=== PATIENT | female | born 1930 | race Caucasian/White ===

== ENCOUNTER → 2016-09-12 | Outpatient (CLI) | payer OTHER ==
[~2016-09-12] MED LIST: ACET325T96 PO; ASCO10003 PO; ASPI81TA28 PO; BACL10TA PO; CALC200T PO; DLN100 PO; ESTROGEN TOP; LRS10 PO; LVNIS30 SQ; MELA1TAB5 PO; MENT4GEL TOP; METO25TA3 PO; MIRT30TA2 PO; MRLP17 PO; MULT-506 PO; NCY50 PO; NCYSR50 PO; NITR1CAP33 PO; POLY335019 PO; POTA1CAP2 PO; QUET1TAB30 PO; RBTUDL5 PO; RMR15 PO; SENN-61 PO; SIME80TA PO; SRQ25 PO; TAPE50TA5 PO; TPRSR25 PO; [UNRECOGNIZED DRUG - OTHER]
[2016-09-12 23:16] LABS: BASO % 0.1 %; BASO ABS # 0.03 K/uL (0-0.2); EOS % 8.9 %; HEMATOCRIT 32.7 % (37-47); IG% 0.3 %; LYMPH ABS # 0.66 K/uL (1.2-3.4); MEAN CELL VOLUME 91.6 fL (80-100); MEAN PLATELET VOLUME 11.1 fL (7.4-10.4); MONO % 4.6 %; NEUT % 83.1 %; PLATELET COUNT 285 K/uL (130-400); RED BLOOD COUNT 3.57 M/uL (4.2-5.4)
[2016-09-12 23:36] LABS: COMPLETE YES; MEAN CORPUSCULAR HGB CONC 32.7 g/dl (32-36)
== END | disposition home or self-care (01) ==
LOC: C.LABBROIN 12:52
PROVIDERS: ATTEND Family Medicine
DX: R50.9 Fever, unspecified (principal); R39.0 Extravasation of urine; N39.0 Urinary tract infection, site not specified

== ENCOUNTER 2017-01-06 08:44 | Day surgery (SDC) | payer OTHER ==
[2017-01-04 16:17] VITALS: BMI 23.0
--- NOTE | 2017-01-05 10:58 | PAT Medication Instructions ---
Service Date January 05, 2017. Current Home Medication List Acetaminophen Tab (Tylenol), 650 MG PO Q4H PRN for UD Ascorbic Acid (Vitamin C), 1,000 MG PO BID Aspirin (Aspirin Ec), 81 MG PO QAM Baclofen (Lioresal), 5 MG PO am/hs Calcium Carbonate-Vitamin D (Oscal 500/200 D-3), 1 TAB PO DAILY Guaifenesin (Robitussin), 10 ML PO Q6H PRN for RN Melatonin (Kp Melatonin), 3 MG PO HS Menthol (Topical Analgesic) (Biofreeze), 1 DOSE TOP TID Metoprolol Succinate (Toprol Xl), 12.5 MG PO DAILY PRN for QAM Mirtazapine Soltab (Remeron Soltab), 30 MG PO HS Multivitamin (Multivitamin), 1 TAB PO QPM Phenytoin Sodium (Dilantin), 200 CAP PO AM/HS Polyethylene Glycol 3350 (Miralax), 17 GM PO QAM Potassium Chloride (Potassium Chloride Er), 10 MEQ PO QPM Quetiapine Fumarate (Seroquel), 12.5 MG PO HS Senna (Senokot), 1 TAB PO BID Tapentadol Hcl (Nucynta), 25 MG PO Q4H PRN for RN [Estrogen Cr 0.625 Mg], 1 DOSE TOP 3XWEEK Medication Instructions For Your Scheduled Surgery - Continue as directed: [Estrogen Cr 0.625 Mg], 1 DOSE TOP 3XWEEK - Hold the following medications 24 hours prior to surgery: Menthol (Topical Analgesic) (Biofreeze), 1 DOSE TOP TID - Hold the following medications the morning of surgery: Ascorbic Acid (Vitamin C), 1,000 MG PO BID Baclofen (Lioresal), 5 MG PO am/hs Senna (Senokot), 1 TAB PO BID Guaifenesin (Robitussin), 10 ML PO Q6H PRN Calcium Carbonate-Vitamin D (Oscal 500/200 D-3), 1 TAB PO DAILY Polyethylene Glycol 3350 (Miralax), 17 GM PO QAM - Take the following medications the morning of surgery with a sip of water OTHERWISE NOTHING TO EAT OR DRINK AFTER MIDNIGHT: Acetaminophen Tab (Tylenol), 650 MG PO Q4H PRN for UD (may take if needed up to 4 hours prior to surgery if needed) Tapentadol Hcl (Nucynta), 25 MG PO Q4H PRN (may take if needed up to 4 hours prior to surgery if needed) Aspirin (Aspirin Ec), 81 MG PO QAM (continue unless otherwise instructed by surgeon) Metoprolol Succinate (Toprol Xl), 12.5 MG PO DAILY PRN for QAM Phenytoin Sodium (Dilantin), 200 CAP PO AM/HS - Take the following medications as scheduled the night before surgery: Acetaminophen Tab (Tylenol), 650 MG PO Q4H PRN for UD Ascorbic Acid (Vitamin C), 1,000 MG PO BID Baclofen (Lioresal), 5 MG PO am/hs Potassium Chloride (Potassium Chloride Er), 10 MEQ PO QPM Quetiapine Fumarate (Seroquel), 12.5 MG PO HS Melatonin (Kp Melatonin), 3 MG PO HS Senna (Senokot), 1 TAB PO BID Guaifenesin (Robitussin), 10 ML PO Q6H PRN Tapentadol Hcl (Nucynta), 25 MG PO Q4H PRN Phenytoin Sodium (Dilantin), 200 CAP PO AM/HS Mirtazapine Soltab (Remeron Soltab), 30 MG PO HS Multivitamin (Multivitamin), 1 TAB PO QPM If you have any questions please call us at [phone] or [phone] or [phone]
[~2017-01-06] VITALS: Ht 167.6 cm; Wt 65.0 kg
[~2017-01-06 08:44] MED LIST changes: +BOTULINUM TOXIN TYPE A 100 UNIT VIAL IM SCH; +CEFAZOLIN 1000MG/55 ML D5W IV SCH; +GENTAMICIN INJ 80 MG in DEXTROSE 5% 100ML 100 ML IV SCH; +LACTATED RINGER'S 1000ML 1,000 ML IV SCH; -LRS10 PO; -LVNIS30 SQ; +MISSING PHYSICIAN SIGNATURE ON ORDER SCH; -MRLP17 PO; -NCY50 PO; -NCYSR50 PO; -NITR1CAP33 PO; -RMR15 PO; -SIME80TA PO; -SRQ25 PO; -TPRSR25 PO; -[UNRECOGNIZED DRUG - OTHER]
[2017-01-06 09:13] VITALS: BP 175/75; PULSE 75; TEMP 37.3; O2SAT 97; Ht 167.6 cm; Wt 65.0 kg
[2017-01-06] MEDS ORDERED: EpHEDrine SULFATE INJ 50 MG/ML AMP IV PRN (11:00)
[2017-01-06] MEDS ORDERED: ATROPINE SULFATE 0.1 MG/ML 5ML SYR IV PRN (11:00)
[2017-01-06] MEDS ORDERED: MIDAZOLAM HCL 1 MG/ML 2ML VIAL ONE (12:01)
[2017-01-06] MEDS ORDERED: FENTANYL CITRATE INJ 50 MCG/1 ML 2 ML VIAL ONE (12:01)
[2017-01-06] MEDS ORDERED: PROPOFOL IV EMULSION 10 MG/ML 20 ML VIAL IV ONE (12:01)
[2017-01-06] MEDS ORDERED: SODIUM CHLORIDE 0.9% PF 50 ML VIAL ONE (12:49)
--- NOTE | 2017-01-06 12:54 | History & Physical Bridge Note ---
H&P Re-Evaluation Bridge Note: I have examined the patient, reviewed the History & Physical and in the interval since the performance of the History & Physical I have noted the following changes of clinical significance: No changes noted
--- NOTE | 2017-01-06 13:46 | [facility] Operative Report ---
Operative Report Operative Date January 06, 2017. Pre-Operative Diagnosis Urge incontinence and frequency Post-Operative Diagnosis same Procedure(s) Performed cysto injection of botox into bladder detrusor Surgeon Dr. Judith Naylor Astronomy Department Chair Surgeon(s) None Estimated Blood Loss 1 mL Findings white fine sediment in urine, no erythema to suggest an active cystitis. Bladder is not trabeculated. Fluids 200mL Specimens No pathology specimens per surgeon Drains none Anesthesia iv sedation Complication(s) None Disposition Recovery Room / PACU Indications urinary frequency with urge incontinence refractory to medical and behavioral therapy Description of Procedure Patient was sedated lightly and placed in lithotomy position. her genitals were prepped and draped in sterile fashion. time out held with team. I placed a rigid 21 fr scope to bladder. She has a rectocele. Her urine had fine white debris which was rinsed out. bladder is otherwise normal, not inflamed. I used a sidekick needle to inject 100 units of botox in 21 1 mL injections throughout the bladder. The trigone was not spared. There was pinpoint bleeding from one puncture site. I left bladder empty and ended case. She transferred to recovery room in stable condition. Plan home today few days abt as she is prone to infection. PVR check in 2 weeks I attest to the content of the Intraoperative Record and any orders documented therein. Any exceptions are noted below.
[2017-01-06] MEDS ORDERED: NITR1CAP33 PO (13:48)
--- NOTE | 2017-01-06 13:50 | Discharge Instructions ---
Discharge Instructions Date of Service January 06, 2017. Admission Reason for Admission: Urinary Frequency and urge incontinence Discharge Discharge Diagnosis / Problem: urge icontinence and urinary frequency Discharge Goals Goal(s): Improve function, Improve disease control Activity Recommendations Activity Limitations: resume your previous activity Lifting Limitations: none Exercise/Sports Limitations: none May Resume Sexual Activity: when tolerated Shower/Bathe: no limitations Driving or Machine Use: n/a . Instructions / Follow-Up Instructions / Follow-Up 2 weeks office visit post void residual check Discharge Diet Recommended Diet: Regular Diet Fluid Restriction: None Procedures Procedures Performed: Cystoscopy, Botox Injection into Bladder Pending Studies Studies pending at discharge: no Medical Emergencies . Who to Call and When: Medical Emergencies: If at any time you feel your situation is an emergency, please call 911 immediately. . Non-Emergent Contact Non-Emergency issues call your: Urologist ([phone]) Call Non-Emergent contact if: temperature is above 100.5 . . "Provider Documentation" section prepared by Judith Naylor. . VTE Core Measure Inpt VTE Proph given/why not?: SCD's
--- NOTE | 2017-01-06 14:19 | Anesthesiology Progress Note ---
Anesthesia Post Op Note Date & Time January 06, 2017 at 14:19 Vital Signs Pain Intensity: 0 Vital Signs Past 12 Hours Date Time Temp Pulse Resp B/P Pulse Ox O2 Delivery O2 Flow Rate FiO2 01/06/17 14:17 36.7 90 15 170/75 98 Room Air 01/06/17 14:01 77 17 98 01/06/17 14:01 77 17 01/06/17 14:00 157/81 01/06/17 13:56 75 17 01/06/17 13:56 75 17 99 01/06/17 13:55 157/84 01/06/17 13:51 69 16 01/06/17 13:51 69 16 99 01/06/17 13:50 166/83 01/06/17 13:49 68 15 99 01/06/17 13:49 68 15 01/06/17 13:45 160/79 01/06/17 13:44 73 18 99 01/06/17 13:44 73 18 01/06/17 13:40 161/70 01/06/17 13:39 73 13 98 01/06/17 13:39 73 13 01/06/17 13:35 156/77 01/06/17 13:34 75 15 99 01/06/17 13:34 75 15 01/06/17 13:30 156/79 01/06/17 13:29 79 21 01/06/17 13:29 36.6 70 16 163/86 100 Mask 10 01/06/17 13:29 79 21 163/86 100 01/06/17 09:13 37.3 75 18 175/75 97 Room Air Notes Mental Status: alert / awake / arousable, participated in evaluation Pt Amnestic to Procedure: Yes Nausea / Vomiting: adequately controlled Pain: adequately controlled Airway Patency, RR, SpO2: stable & adequate BP & HR: stable & adequate Hydration State: stable & adequate Anesthetic Complications: no major complications apparent
[2017-01-06 14:25] VITALS: BP 174/75; TEMP 36.7; O2SAT 95
[2017-01-06 15:00] VITALS: BP 132/64; PULSE 76; O2SAT 96
[2017-01-06 15:30] VITALS: BP 127/57; PULSE 80; TEMP 37; O2SAT 96
[2017-01-06] MEDS ORDERED: GENTAMICIN INJ 240 MG in DEXTROSE 5% 100ML 100 ML IV ONE (15:30)
[2017-01-06 16:20] VITALS: BP 146/70; PULSE 78; O2SAT 97
[2017-07-16] MEDS ORDERED: LIDO2GEL8 (15:16)
[2017-07-16] MEDS ORDERED: CIPR1TAB10 PO (15:16)
[2017-07-16] MEDS ORDERED: PRMVC (15:16)
[2017-07-18] MEDS ORDERED: DLN100 PO ×2 (11:42)
[2017-07-18] MEDS ORDERED: LPT/20 PO (11:44)
== END 2017-01-06 16:34 | disposition home or self-care (01) ==
LOC: C.ACU 08:44
PROVIDERS: ATTEND Urology
DX: N39.41 Urge incontinence (principal); R35.0 Frequency of micturition; I12.9 Hypertensive chronic kidney disease with stage 1 through stage 4 chronic kidney disease, or unspecified chronic kidney disease; E78.5 Hyperlipidemia, unspecified; R56.9 Unspecified convulsions; M19.90 Unspecified osteoarthritis, unspecified site; M81.0 Age-related osteoporosis without current pathological fracture; N18.3 Chronic kidney disease, stage 3 (moderate); F41.1 Generalized anxiety disorder; F01.50 Vascular dementia, unspecified severity, without behavioral disturbance, psychotic disturbance, mood disturbance, and anxiety; Z66 Do not resuscitate

== ENCOUNTER → 2017-05-25 | Outpatient (CLI) | payer OTHER ==
[~2017-05-25] MED LIST changes: -BOTULINUM TOXIN TYPE A 100 UNIT VIAL IM SCH; -CEFAZOLIN 1000MG/55 ML D5W IV SCH; +GADAVIST IV PRN; -GENTAMICIN INJ 80 MG in DEXTROSE 5% 100ML 100 ML IV SCH; -LACTATED RINGER'S 1000ML 1,000 ML IV SCH; -MISSING PHYSICIAN SIGNATURE ON ORDER SCH
--- NOTE | 2017-05-25 15:27 | DIAGNOSTIC IMAGING REPORT ---
BRAIN COMBO CLINICAL HISTORY: 86 years-old Female presenting with D32.9 [id number]. TECHNIQUE: Multisequence, multiplanar MR imaging of the brain was performed before and after the administration of intravenous contrast. IV contrast: 6 mL of Gadavist. COMPARISON: 05/10/2016. FINDINGS: Postsurgical changes of left craniotomy and subjacent cystic encephalomalacia and gliosis of the left parieto-occipital region status post meningioma resection. This is unchanged from prior exam. No enhancing lesion in this region to suggest recurrent disease. Ventricles and sulci normal in size. Periventricular and subcortical white matter T2/FLAIR hyperintensity, nonspecific but likely indicative of chronic small vessel ischemic change. No mass effect or midline shift. No restricted diffusion to suggest acute ischemia. No hemorrhage. No extra-axial fluid collection. T2 skull base flow voids preserved. Bone marrow signal intensity within the calvarium within normal limits. [place] lenses of the globes are absent. IMPRESSION: 1. Stable examination in comparison to prior exam with postsurgical changes of the left parieto-occipital region. No recurrent mass. Electronically signed by: Jovani Pearson M.D. 05/25/2017 3:26 PM Dictated Date/Time: 05/25/2017 3:22 PM
== END | disposition home or self-care (01) ==
LOC: C.MRI 13:26
PROVIDERS: ATTEND Psychiatry & Neurology Neurology
DX: D32.9 Benign neoplasm of meninges, unspecified (principal); Z98.890 Other specified postprocedural states

== ENCOUNTER → 2017-09-30 | Outpatient (CLI) | payer OTHER ==
[~2017-09-30] MED LIST changes: -BACL10TA PO; +CIPR1TAB10 PO; -ESTROGEN TOP; -GADAVIST IV PRN; +LIDO2GEL8; +LPT20 PO; +PRMVC; -SENN-61 PO
== END ==
LOC: C.LABFOXAC 07:48
PROVIDERS: ATTEND Nurse Practitioner Family
DX: Z51.81 Encounter for therapeutic drug level monitoring (principal); Z79.899 Other long term (current) drug therapy

== ENCOUNTER → 2017-10-16 | Outpatient (CLI) | payer OTHER ==
[~2017-10-16] MED LIST changes: +ACET-1693 PO; -ACET325T96 PO; -METO25TA3 PO; +METO25TA4 PO
== END | disposition home or self-care (01) ==
LOC: C.LABFOXAC 13:00
PROVIDERS: ATTEND Nurse Practitioner
DX: R30.0 Dysuria (principal)

== ENCOUNTER → 2017-10-30 | Outpatient (CLI) | payer OTHER | END | disposition home or self-care (01) | LOC: C.LABFOXAC 11:52 | PROVIDERS: ATTEND Internal Medicine | DX: R30.9 Painful micturition, unspecified (principal) ==

== ENCOUNTER → 2017-12-22 | Outpatient (CLI) | payer OTHER ==
[2017-12-22 08:16] LABS: HEMOGLOBIN 11.9 g/dL (12.0-16.0); MEAN CELL VOLUME 93.4 fL (80-100); MEAN CORPUSCULAR HEMOGLOBIN 30.1 pg (25-34); MEAN CORPUSCULAR HGB CONC 32.2 g/dl (32-36); MEAN PLATELET VOLUME 10.8 fL (7.4-10.4); PLATELET COUNT 259 K/uL (130-400); RED CELL DISTRIBUTION WIDTH CV 13.4 % (11.5-14.5); RED CELL DISTRIBUTION WIDTH SD 45.8 fL (36.4-46.3); WHITE BLOOD COUNT 6.84 K/uL (4.8-10.8)
[2017-12-22 08:25] LABS: ALBUMIN 3.2 gm/dl (3.4-5.0); ALT/SGPT 19 U/L (12-78); AST/SGOT 16 U/L (15-37); BLOOD UREA NITROGEN 22 mg/dl (7-18); CALCIUM 8.6 mg/dl (8.5-10.1); CARBON DIOXIDE 26 mmol/L (21-32); CREATININE 0.97 mg/dl (0.60-1.20); GLUCOSE 96 mg/dl (70-99); POTASSIUM 3.9 mmol/L (3.5-5.1); SODIUM 143 mmol/L (136-145)
[2017-12-22 08:27] LABS: ALKALINE PHOSPHATASE 220 U/L (45-117); TOTAL PROTEIN 6.8 gm/dl (6.4-8.2)
== END ==
LOC: C.LABFOXAC 07:53
PROVIDERS: ATTEND Internal Medicine Hospice and Palliative Medicine
DX: R53.83 Other fatigue (principal)

== ENCOUNTER → 2018-03-23 | Outpatient (CLI) | payer OTHER ==
[2018-03-23 09:10] LABS: HEMATOCRIT 34.5 % (37-47); HEMOGLOBIN 11.3 g/dL (12.0-16.0); MEAN CELL VOLUME 92.5 fL (80-100); MEAN CORPUSCULAR HEMOGLOBIN 30.3 pg (25-34); MEAN CORPUSCULAR HGB CONC 32.8 g/dl (32-36); MEAN PLATELET VOLUME 11.2 fL (7.4-10.4); PLATELET COUNT 261 K/uL (130-400); RED CELL DISTRIBUTION WIDTH CV 14.3 % (11.5-14.5); RED CELL DISTRIBUTION WIDTH SD 48.3 fL (36.4-46.3); WHITE BLOOD COUNT 5.58 K/uL (4.8-10.8)
[2018-03-23 09:17] LABS: ALBUMIN 3.3 gm/dl (3.4-5.0); ALKALINE PHOSPHATASE 146 U/L (45-117); ALT/SGPT 24 U/L (12-78); AST/SGOT 18 U/L (15-37); BLOOD UREA NITROGEN 32 mg/dl (7-18); CALCIUM 8.5 mg/dl (8.5-10.1); CARBON DIOXIDE 26 mmol/L (21-32); CREATININE 1.09 mg/dl (0.60-1.20); GLUCOSE 94 mg/dl (70-99); POTASSIUM 4.1 mmol/L (3.5-5.1); SODIUM 142 mmol/L (136-145); TOTAL PROTEIN 6.6 gm/dl (6.4-8.2)
== END ==
LOC: C.LABFOXAC 08:58
PROVIDERS: ATTEND Internal Medicine
DX: E78.5 Hyperlipidemia, unspecified (principal); Z75.8 Other problems related to medical facilities and other health care